=== PATIENT | male | born 1995 | race Two or more races ===

== ENCOUNTER 2016-06-25 21:23 | Emergency (ER) | payer OTHER ==
[2016-06-26] MEDS ORDERED: OXYCODONE-ACETAMINOPHEN 5-325 MG TABLET PO ONE (02:33)
[2016-06-26] MEDS ORDERED: ONDANSETRON 4 MG TAB.RAPDIS PO ONE (02:33)
--- NOTE | 2016-06-26 02:34 | ER Document Report ---
HPI - HPI Patient complains to provider of: right hand injury Pain Level: 5 Context: Patient is a 21-year-old male that comes emergency department for chief complaint of swollen painful right hand, he admits he punched a wall yesterday, denies elbow, shoulder pain, denies any other injuries. - CONSTITUTIONAL Constitutional: DENIES: Fever, Chills - EENT EENT: DENIES: Sore Throat, Ear Pain, Nasal Drainage-Clear, Nasal Drainage- Purulent, Congestion, Eye problems - NEURO Neurology: DENIES: Headache, Weakness, Vision blurred, Dizzinesss / Vertigo - CARDIOVASCULAR Cardiovascular: DENIES: Chest pain - RESPIRATORY Respiratory: DENIES: Trouble Breathing, Coughing - GASTROINTESTINAL Gastrointestinal: DENIES: Abdominal Pain, Nausea, Patient vomiting, Diarrhea, Constipation, Black / Bloody Stools - URINARY Urinary: DENIES: Dysuria, Urgency, Frequency - MUSCULOSKELETAL Musculoskeletal: REPORTS: Extremity pain - R hand - NURSING COMMENTS Comment: Pt states he punched a wall a couple nights ago. Right hand now swelling and all digits are bruised with swelling over knuckles. Decreased sensation noted in fingers. Able to move fingers slightly. Pt A&OX4 in NAD. Speaking in complete sentences with resp e/u. Past Medical History - General Information source: Patient - Social History Smoking Status: Never Smoker Frequency of alcohol use: None Drug Abuse: None Lives with: Family Family History: Reviewed & Not Pertinent - Medical History Medical History: Negative Surgical Hx: Negative - Immunizations Immunizations up to date: Yes Hx Diphtheria, Pertussis, Tetanus Vaccination: Yes Vertical Provider Document - CONSTITUTIONAL General Appearance: WD/WN, No Apparent Distress - INFECTION CONTROL TRAVEL OUTSIDE OF THE [place] IN LAST 30 DAYS: No - HEENT HEENT: Atraumatic, Normocephalic - NECK Neck: Normal Inspection - RESPIRATORY Respiratory: Breath Sounds Normal, No Respiratory Distress O2 Sat by Pulse Oximetry: 100 - CARDIOVASCULAR Cardiovascular: Regular Rate, Regular Rhythm - GI/ABDOMEN Gastrointestinal: Abdomen Soft, Abdomen Non-Tender - BACK Back: Normal Inspection - MUSCULOSKELETAL/EXTREMETIES Musculoskeletal/Extremeties: Tender - Swollen hand with tenderness centered over the fourth and fifth metacarpal phalangeal joints, ecchymosis over the hand , unremarkable wrist, elbow, shoulder exam. Normal capillary refill and sensation of the hand Course - Vital Signs Vital signs: Temp Pulse Resp BP Pulse Ox 97.9 F 66 18 132/79 H 100 06/26/16 01:22 06/26/16 01:22 06/26/16 01:22 06/26/16 01:22 06/26/16 01:22 - Diagnostic Test Radiology reviewed: Image reviewed - Fracture noted with slight angulation but no displacement of the fifth MCP, Reports reviewed Procedures - Immobilization right hand Pre-Proc Neuro Vasc Exam: Normal Immobilizer type: Ulnar - Boxer splint. Pressure placed over the fifth MCP to reduce angulation with the splint, good capillary refill and sensation Performed by: PCT Post-Proc Neuro Vasc Exam: Normal Alignment checked and good: Yes Discharge - Discharge Clinical Impression: Fracture, metacarpal Qualifiers: Encounter type: initial encounter Metacarpal bone: fifth Fracture type: closed Metacarpal location: shaft Fracture alignment: nondisplaced Laterality: right Qualified Code(s): S62.356A - Nondisplaced fracture of shaft of fifth metacarpal bone, right hand, initial encounter for closed fracture Condition: Stable Disposition: HOME, SELF-CARE Additional Instructions: Your x-ray shows a boxer fracture. Wear the splint, take the pain medication if needed, follow-up with orthopedics as directed for additional management. Return to the emergency department for any concerning symptoms. Prescriptions: Oxycodone HCl/Acetaminophen [Percocet 5-325 mg Tablet] 1 - 2 tab PO Q4H PRN #20 tablet PRN Reason: Forms: Return to Work Referrals: PRESTON ORTIZ DO [ACTIVE STAFF] - Follow up in 3-5 days
[2016-06-26 03:41] VITALS: BP 121/72
== END 2016-06-26 03:39 | disposition home or self-care (01) ==
LOC: ER 21:23
PROC: 2W3CX1Z Immobilization of Right Lower Arm using Splint (ICD-10-PCS; principal; 2016-06-25)
DX: S62.356A Nondisplaced fracture of shaft of fifth metacarpal bone, right hand, initial encounter for closed fracture (principal); W22.01XA Walked into wall, initial encounter
CPT/HCPCS: 99283; 73130; 29125; S0119